=== PATIENT | male | born 1965 | race African-American/Black ===

== ENCOUNTER 2020-01-25 11:52 | Emergency (ER) | payer BC ==
[~2020-01-25] VITALS: Ht 172.7 cm; Wt 88.0 kg
[2020-01-25 12:21] VITALS: BP 124/76
== END 2020-01-25 12:12 | disposition home or self-care (01) ==
LOC: EMS 11:53
DX: J06.9 Acute upper respiratory infection, unspecified (principal); F17.210 Nicotine dependence, cigarettes, uncomplicated